=== PATIENT | female | born 1955 ===

== ENCOUNTER 2017-08-01 09:53 | Inpatient (IN) | payer OTHER ==
[2017-08-01] MEDS ORDERED: NACL 0.9% 3 ML SYG IV (11:00)
[2017-08-01] MEDS ORDERED: GLUCAGON 1 MG INJ IM (11:30)
[2017-08-01] MEDS ORDERED: DEXTROSE 50% 50 ML SYRINGE IV ×2 (11:30)
[2017-08-01] MEDS ORDERED: hydrALAzine 20 MG INJ IV (11:30)
[2017-08-01] MEDS ORDERED: GLUCOSE GEL 15 GRAM TUBE BUCCAL (11:30)
[2017-08-01] MEDS ORDERED: GLUCOSE GEL 15 GRAM TUBE PO ×2 (11:30)
[2017-08-01] MEDS: NIFEdipine (XL) 30 MG TAB PO ×2 (11:55→21:42)
[2017-08-01] MEDS: INSULIN ASPART [NOVOLOG] 3 ML PEN SC ×3 (11:55→21:00)
[2017-08-01 12:23] LABS: ADD MAN DIFF? NO
[2017-08-01 12:27] LABS: WHITE BLOOD COUNT 4.6 10^3/ul (4.8-10.8)
[2017-08-01 12:27] LABS: BASOPHILS % 0.2 % (0.0-2.0); EOSINOPHILS # 0.1 10^3/ul (0.0-0.5); EOSINOPHILS % 1.3 % (0.0-7.0); HEMATOCRIT 33.3 % (37.0-47.0); HEMOGLOBIN 11.3 g/dl (12.0-16.0); LYMPHOCYTES # 1.5 10^3/ul (0.8-2.9); LYMPHOCYTES % 32.2 % (15.0-51.0); MEAN CORPUSCULAR HEMOGLOBIN 32.8 pg (29.0-33.0); MEAN CORPUSCULAR HGB CONC 33.9 g/dl (32.0-37.0); MEAN CORPUSCULAR VOLUME 96.5 fl (82.0-101.0); MEAN PLATELET VOLUME 11.8 fl (7.4-10.4); MONOCYTE # 0.3 10^3/ul (0.3-0.9); MONOCYTES % 6.5 % (0.0-11.0); NEUTROPHIL # 2.8 10^3/ul (1.6-7.5); NEUTROPHILS % 59.4 % (39.0-77.0); PLATELET COUNT 158 10^3/UL (140-415); RED BLOOD COUNT 3.45 10^6/ul (4.20-5.40); RED CELL DISTRIBUTION WIDTH 11.4 % (11.5-14.5)
[2017-08-01 12:34] LABS: HEMOGLOBIN A1C 4.9 % (0-5.9)
[2017-08-01 12:58] LABS: ALANINE AMINOTRANSFERASE 53 IU/L (13-69); ALBUMIN 3.4 g/dl (3.3-4.9); ALBUMIN/GLOBULIN RATIO 0.85; ALKALINE PHOSPHATASE 99 IU/L (42-121); ANION GAP 12 (8-16); ASPARTATE AMINO TRANSFERASE 80 IU/L (15-46); BILIRUBIN,INDIRECT 0.2 mg/dl (0-1.1); BILIRUBIN,TOTAL 0.2 mg/dl (0.2-1.3); BLOOD UREA NITROGEN 10 mg/dl (7-20); CALCIUM 8.9 mg/dl (8.4-10.2); CARBON DIOXIDE 28 mmol/L (21-31); CHLORIDE 105 mmol/L (97-110); CREATINE KINASE 84 IU/L (23-200); CREATININE 0.66 mg/dl (0.44-1.00); GLUCOSE 108 mg/dl (70-220); MAGNESIUM 1.6 mg/dl (1.7-2.5); PHOSPHORUS 3.2 mg/dl (2.5-4.9); POTASSIUM 4.1 mmol/L (3.5-5.1); SODIUM 141 mmol/L (135-144); TOTAL PROTEIN 7.4 g/dl (6.1-8.1)
[2017-08-01 13:06] LABS: FREE T4 (FREE THYROXINE) 1.72 ng/dl (0.78-2.44)
[2017-08-01 13:09] LABS: CK INDEX 1.6; CK-MB 1.31 ng/ml (0.0-2.4)
[2017-08-01 13:11] LABS: INR 1.09; PARTIAL THROMBOPLASTIN TIME 30.7 Sec (25.0-35.0); PROTIME 14.2 Sec (11.9-14.9); PT RATIO 1.1
[2017-08-01 13:17] LABS: TROPONIN-I < 0.012 ng/ml (0.00-0.12)
[2017-08-01 13:47] LABS: CHOL/HDL RATIO 2.2 RATIO; HDL CHOLESTEROL 60 mg/dl (35-98); LDL CHOLESTEROL,CALCULATED 60 mg/dl; TRIGLYCERIDES 84 mg/dl (0-149)
[2017-08-01 13:47] LABS: CHOLESTEROL 137 mg/dl (100-200)
[2017-08-01 14:17] LABS: THYROID STIMULATING HORMONE 0.568 MIU/L (0.465-4.680)
[2017-08-01] MEDS: HEPARIN 5,000 UNIT/0.5 ML VIAL SC ×2 (14:28→21:58)
[2017-08-01] MEDS: MAGNESIUM SULFATE 2 GM/50 ML 50 ML IVPB (21:42)
[2017-08-02] MEDS: HEPARIN 5,000 UNIT/0.5 ML VIAL SC ×3 (06:22→21:10)
[2017-08-02 06:52] LABS: ADD MAN DIFF? NO
[2017-08-02 06:54] LABS: WHITE BLOOD COUNT 4.2 10^3/ul (4.8-10.8)
[2017-08-02 06:54] LABS: BASOPHILS % 0.2 % (0.0-2.0); EOSINOPHILS # 0.1 10^3/ul (0.0-0.5); EOSINOPHILS % 2.4 % (0.0-7.0); HEMATOCRIT 33.9 % (37.0-47.0); HEMOGLOBIN 11.4 g/dl (12.0-16.0); LYMPHOCYTES # 1.8 10^3/ul (0.8-2.9); LYMPHOCYTES % 43.3 % (15.0-51.0); MEAN CORPUSCULAR HEMOGLOBIN 32.9 pg (29.0-33.0); MEAN CORPUSCULAR HGB CONC 33.6 g/dl (32.0-37.0); MEAN PLATELET VOLUME 11.5 fl (7.4-10.4); MONOCYTE # 0.4 10^3/ul (0.3-0.9); MONOCYTES % 9.6 % (0.0-11.0); NEUTROPHIL # 1.9 10^3/ul (1.6-7.5); NEUTROPHILS % 44.3 % (39.0-77.0); PLATELET COUNT 231 10^3/UL (140-415); RED BLOOD COUNT 3.46 10^6/ul (4.20-5.40); RED CELL DISTRIBUTION WIDTH 11.3 % (11.5-14.5)
[2017-08-02 07:19] LABS: MAGNESIUM 1.9 mg/dl (1.7-2.5)
[2017-08-02 07:19] LABS: PHOSPHORUS 3.5 mg/dl (2.5-4.9)
[2017-08-02 07:21] LABS: ALANINE AMINOTRANSFERASE 59 IU/L (13-69); ALBUMIN 3.1 g/dl (3.3-4.9); ALBUMIN/GLOBULIN RATIO 0.88; ALKALINE PHOSPHATASE 91 IU/L (42-121); ANION GAP 10 (8-16); ASPARTATE AMINO TRANSFERASE 70 IU/L (15-46); BILIRUBIN,INDIRECT 0.2 mg/dl (0-1.1); BILIRUBIN,TOTAL 0.2 mg/dl (0.2-1.3); BLOOD UREA NITROGEN 12 mg/dl (7-20); CALCIUM 8.8 mg/dl (8.4-10.2); CARBON DIOXIDE 32 mmol/L (21-31); CHLORIDE 106 mmol/L (97-110); CREATININE 0.67 mg/dl (0.44-1.00); GLUCOSE 163 mg/dl (70-220); POTASSIUM 3.7 mmol/L (3.5-5.1); SODIUM 144 mmol/L (135-144); TOTAL PROTEIN 6.6 g/dl (6.1-8.1)
[2017-08-02] MEDS: INSULIN ASPART [NOVOLOG] 3 ML PEN SC ×4 (07:56→20:48)
[2017-08-02] MEDS: NIFEdipine (XL) 30 MG TAB PO ×2 (08:20→20:44)
[2017-08-02 16:32] LABS: IRON 96 ug/dl (35-150)
[2017-08-02 16:42] LABS: % IRON SATURATION 31 % SAT (22-52); TOTAL IRON BINDING CAPACITY 307 ug/dl (241-421)
[2017-08-02 17:08] LABS: HEPATITIS B SURFACE ANTIGEN NEGATIVE (NEGATIVE)
[2017-08-02 17:26] LABS: HEPATITIS C VIRAL ANTIBODY REACTIVE (NEGATIVE)
[2017-08-02 20:08] LABS: RAPID PLASMA REAGIN NONREACTIVE (NR)
[2017-08-03] MEDS: HEPARIN 5,000 UNIT/0.5 ML VIAL SC ×3 (05:33→21:57)
[2017-08-03] MEDS: INSULIN ASPART [NOVOLOG] 3 ML PEN SC ×4 (08:23→20:46)
[2017-08-03 08:43] LABS: ADD MAN DIFF? NO
[2017-08-03] MEDS: NIFEdipine (XL) 30 MG TAB PO (08:43)
[2017-08-03 08:45] LABS: WHITE BLOOD COUNT 3.9 10^3/ul (4.8-10.8)
[2017-08-03 08:45] LABS: BASOPHILS % 0.3 % (0.0-2.0); EOSINOPHILS # 0.1 10^3/ul (0.0-0.5); EOSINOPHILS % 2.5 % (0.0-7.0); HEMATOCRIT 33.9 % (37.0-47.0); HEMOGLOBIN 11.7 g/dl (12.0-16.0); LYMPHOCYTES # 1.8 10^3/ul (0.8-2.9); LYMPHOCYTES % 45.9 % (15.0-51.0); MEAN CORPUSCULAR HEMOGLOBIN 33.2 pg (29.0-33.0); MEAN CORPUSCULAR HGB CONC 34.5 g/dl (32.0-37.0); MEAN CORPUSCULAR VOLUME 96.3 fl (82.0-101.0); MEAN PLATELET VOLUME 11.6 fl (7.4-10.4); MONOCYTE # 0.4 10^3/ul (0.3-0.9); MONOCYTES % 9.4 % (0.0-11.0); NEUTROPHIL # 1.6 10^3/ul (1.6-7.5); NEUTROPHILS % 41.6 % (39.0-77.0); PLATELET COUNT 229 10^3/UL (140-415); RED BLOOD COUNT 3.52 10^6/ul (4.20-5.40); RED CELL DISTRIBUTION WIDTH 11.3 % (11.5-14.5)
[2017-08-03 09:48] LABS: ANION GAP 12 (8-16); BLOOD UREA NITROGEN 17 mg/dl (7-20); CARBON DIOXIDE 27 mmol/L (21-31); CHLORIDE 107 mmol/L (97-110); CREATININE 0.65 mg/dl (0.44-1.00); GLUCOSE 149 mg/dl (70-220); POTASSIUM 4.1 mmol/L (3.5-5.1); SODIUM 142 mmol/L (135-144)
[2017-08-03 10:46] LABS: MAGNESIUM 1.7 mg/dl (1.7-2.5)
[2017-08-03 10:46] LABS: PHOSPHORUS 3.9 mg/dl (2.5-4.9)
[2017-08-03] MEDS: REPAGLINIDE 1 MG TAB PO (17:51)
[2017-08-03] MEDS: metFORMIN (XR) 500 MG TAB PO (17:52)
[2017-08-04] MEDS: HEPARIN 5,000 UNIT/0.5 ML VIAL SC ×2 (05:43→14:00)
[2017-08-04 06:07] LABS: ADD MAN DIFF? NO
[2017-08-04 06:18] LABS: BASOPHILS % 0.2 % (0.0-2.0); EOSINOPHILS # 0.2 10^3/ul (0.0-0.5); EOSINOPHILS % 3.2 % (0.0-7.0); HEMATOCRIT 35.2 % (37.0-47.0); HEMOGLOBIN 11.7 g/dl (12.0-16.0); LYMPHOCYTES # 1.7 10^3/ul (0.8-2.9); MEAN CORPUSCULAR HGB CONC 33.2 g/dl (32.0-37.0); MEAN CORPUSCULAR VOLUME 99.2 fl (82.0-101.0); MEAN PLATELET VOLUME 11.9 fl (7.4-10.4); MONOCYTE # 0.4 10^3/ul (0.3-0.9); MONOCYTES % 8.5 % (0.0-11.0); NEUTROPHIL # 2.4 10^3/ul (1.6-7.5); NEUTROPHILS % 51.9 % (39.0-77.0); PLATELET COUNT 211 10^3/UL (140-415); RED BLOOD COUNT 3.55 10^6/ul (4.20-5.40); RED CELL DISTRIBUTION WIDTH 11.1 % (11.5-14.5)
[2017-08-04 06:18] LABS: WHITE BLOOD COUNT 4.7 10^3/ul (4.8-10.8)
[2017-08-04 06:41] LABS: ANION GAP 10 (8-16); BLOOD UREA NITROGEN 20 mg/dl (7-20); CALCIUM 9.4 mg/dl (8.4-10.2); CARBON DIOXIDE 31 mmol/L (21-31); CHLORIDE 108 mmol/L (97-110); CREATININE 0.79 mg/dl (0.44-1.00); GLUCOSE 123 mg/dl (70-220); POTASSIUM 4.1 mmol/L (3.5-5.1); SODIUM 145 mmol/L (135-144)
[2017-08-04 07:25] LABS: MAGNESIUM 1.8 mg/dl (1.7-2.5)
[2017-08-04 07:25] LABS: PHOSPHORUS 4.1 mg/dl (2.5-4.9)
[2017-08-04] MEDS: INSULIN ASPART [NOVOLOG] 3 ML PEN SC ×3 (08:00→17:40)
[2017-08-04] MEDS: metFORMIN (XR) 500 MG TAB PO ×2 (08:05→17:45)
[2017-08-04] MEDS: REPAGLINIDE 1 MG TAB PO ×3 (08:06→17:41)
[2017-08-04] MEDS: LOSARTAN 50 MG TAB PO (08:10)
== END 2017-08-04 18:34 | disposition home health service (06) | DRG 637 ==
LOC: MS4 09:53
PROVIDERS: Family Medicine
DX: E11.649 Type 2 diabetes mellitus with hypoglycemia without coma (principal); G93.41 Metabolic encephalopathy; I10 Essential (primary) hypertension; F79 Unspecified intellectual disabilities; B19.20 Unspecified viral hepatitis C without hepatic coma; Z85.3 Personal history of malignant neoplasm of breast; Z79.4 Long term (current) use of insulin
CPT/HCPCS: 71045; 80048; 80053; 80061; 82533; 82550; 82553; 82728; 82962; 83036; 83540; 83605; 83735; 84100; 84439; 84443; 84484; 85025; 85610; 85730; 86592; 86803; 87340; 93005; 97116; 97162